=== PATIENT | male | born 1985 | race Caucasian/White ===

== ENCOUNTER → 2020-11-01 | Outpatient (CLI) | payer SELFPAY | LOC: M LABSMTC 10:36 | PROVIDERS: ATTEND Pediatrics | DX: Z20.828 Contact with and (suspected) exposure to other viral communicable diseases (principal) ==

== ENCOUNTER 2022-06-12 18:20 | Emergency (ER) | payer BC, SELFPAY ==
[~2022-06-12] VITALS: Ht 182.9 cm; Wt 109.4 kg
[2022-06-12] MEDS ORDERED: EPIP0.3I2 IM (22:20)
[2022-06-12] MEDS ORDERED: PRED20TA PO (22:20)
[2022-06-12 22:44] VITALS: BP 153/75
== END 2022-06-12 23:01 | disposition home or self-care (01) ==
LOC: M ED 18:20 → EDBD 18:20 → M ED 23:01
DX: T78.2XXA Anaphylactic shock, unspecified, initial encounter (principal); W57.XXXA Bitten or stung by nonvenomous insect and other nonvenomous arthropods, initial encounter; Y92.89 Other specified places as the place of occurrence of the external cause; F17.220 Nicotine dependence, chewing tobacco, uncomplicated